=== PATIENT | female | born 1995 | race Caucasian/White ===

== ENCOUNTER → 2019-09-30 | Outpatient (REF) | payer BC ==
[2019-09-30 12:31] LABS: ALBUMIN 4.2 GM/DL (3.2-5.2); ALT/SGPT 21 U/L (12-78); BILIRUBIN,TOTAL 0.4 MG/DL (0.2-1.0); BLOOD UREA NITROGEN 13 MG/DL (7-18); CARBON DIOXIDE LEVEL 30 MEQ/L (21-32); CHLORIDE LEVEL 108 MEQ/L (98-107); CREATININE FOR GFR 0.68 MG/DL (0.55-1.30); FREE T4 1.04 NG/DL (0.76-1.46); GLOMERULAR FILTRATION RATE > 60.0 (>60); GLUCOSE, FASTING 95 MG/DL (70-100); POTASSIUM SERUM 4.4 MEQ/L (3.5-5.1); SODIUM LEVEL 142 MEQ/L (136-145); THYROID STIMULATING HORMONE 0.463 uIU/ML (0.358-3.740); TOTAL 25(OH) VITAMIN D 28.2 NG/ML (30.0-100.0); TOTAL PROTEIN 7.4 GM/DL (6.4-8.2)
[2019-09-30 13:32] LABS: HEMOGLOBIN A1c 5.2 %
== END ==
LOC: M SFHCPLAZ 10:07
PROVIDERS: ATTEND Physician Assistant
DX: Z00.00 Encounter for general adult medical examination without abnormal findings (principal); Z86.39 Personal history of other endocrine, nutritional and metabolic disease; Z13.1 Encounter for screening for diabetes mellitus

== ENCOUNTER → 2020-12-23 | Outpatient (CLI) | payer BC, OTHER ==
[2020-12-23 13:58] LABS: CHOLESTEROL RISK RATIO 2.567 (<5)
== END ==
LOC: M PLALAB 09:13
PROVIDERS: ATTEND Psychiatry & Neurology Psychiatry
DX: F41.8 Other specified anxiety disorders (principal); F33.1 Major depressive disorder, recurrent, moderate; F10.99 Alcohol use, unspecified with unspecified alcohol-induced disorder

== ENCOUNTER → 2021-02-21 | Outpatient (REF) | payer OTHER, MEDICAID ==
[~2021-02-21] MED LIST: DIVA250T67 PO; LEXA1TAB PO; LORY1TAB2 PO; METF500T13 PO; TRAZ-252 PO
[2021-02-21 17:44] LABS: ALBUMIN 3.8 GM/DL (3.2-5.2); BILIRUBIN,DIRECT 0.2 MG/DL (0.0-0.2); BILIRUBIN,TOTAL 0.5 MG/DL (0.2-1.0); TOTAL PROTEIN 7.5 GM/DL (6.4-8.2)
== END ==
LOC: M PLALAB 16:48
PROVIDERS: ATTEND Psychiatry & Neurology Psychiatry
DX: F41.8 Other specified anxiety disorders (principal); F33.1 Major depressive disorder, recurrent, moderate; F10.99 Alcohol use, unspecified with unspecified alcohol-induced disorder

== ENCOUNTER 2021-03-26 06:31 | Inpatient (IN) | payer BC, OTHER ==
[~2021-03-26] VITALS: Ht 162.6 cm; Wt 88.0 kg
[2021-03-26 07:33] LABS: HEMATOCRIT 37.1 % (36.0-47.0); HEMOGLOBIN 12.5 g/dl (12.0-15.5); MEAN CORPUSCULAR HEMOGLOBIN 30.5 pg (27.0-33.0); MEAN CORPUSCULAR HGB CONC 33.7 g/dl (32.0-36.5); MEAN CORPUSCULAR VOLUME 90.5 fl (80.0-96.0); PLATELET COUNT, AUTOMATED 240 10^3/uL (150-450); WHITE BLOOD COUNT 9.8 10^3/uL (4.0-10.0)
[2021-03-26] MEDS ORDERED: TRAZ-252 PO (07:36)
[2021-03-26] MEDS ORDERED: LORY1TAB2 PO (07:36)
[2021-03-26] MEDS ORDERED: LEXA1TAB PO (07:36)
[2021-03-26] MEDS ORDERED: DIVA250T67 PO (07:36)
[2021-03-26] MEDS ORDERED: METF500T13 PO (07:36)
[2021-03-26 07:58] LABS: AMPHETAMINES LEVEL URINE NEGATIVE (NEGATIVE); BARBITURATES URINE NEGATIVE (NEGATIVE); BENZODIAZEPINES URINE NEGATIVE (NEGATIVE); CANNABINOIDS URINE POSITIVE (NEGATIVE); COCAINE METABOLITE URINE NEGATIVE (NEGATIVE); METHADONE URINE NEGATIVE (NEGATIVE); OPIATES URINE NEGATIVE (NEGATIVE); PHENCYCLIDINE URINE NEGATIVE (NEGATIVE)
[2021-03-26 08:01] LABS: HCG, SERUM QUALITATIVE NEGATIVE (NEGATIVE)
[2021-03-26 08:07] LABS: ACETAMINOPHEN LEVEL < 2.0 UG/ML (10.0-30.0); ALBUMIN 3.8 GM/DL (3.2-5.2); ALT/SGPT 38 U/L (12-78); BILIRUBIN,DIRECT 0.1 MG/DL (0.0-0.2); BILIRUBIN,TOTAL 0.3 MG/DL (0.2-1.0); BLOOD UREA NITROGEN 7 MG/DL (7-18); CALCIUM LEVEL 8.8 MG/DL (8.5-10.1); CARBON DIOXIDE LEVEL 27 MEQ/L (21-32); CHLORIDE LEVEL 108 MEQ/L (98-107); CREATININE FOR GFR 0.67 MG/DL (0.55-1.30); ETHYL ALCOHOL (ETHANOL) 0.159 % (0.000-0.010); GLOMERULAR FILTRATION RATE > 60.0 (>60); GLUCOSE, FASTING 86 MG/DL (70-100); SALICYLATE LEVEL 1.7 MG/DL (5.0-30.0); SODIUM LEVEL 141 MEQ/L (136-145); TOTAL PROTEIN 7.6 GM/DL (6.4-8.2)
[2021-03-26] MEDS ORDERED: metFORMIN (GLUCOPHAGE) 500MG TAB PO ONE (09:00)
[2021-03-26] MEDS ORDERED: DIVALPROEX 250 MG TAB PO ONE (09:00)
[2021-03-26] MEDS ORDERED: ESCITALOPRAM OXALATE 10 MG TAB (LEXAPRO) PO ONE (09:00)
[2021-03-26] MEDS ORDERED: ACETAMINOPHEN TAB 650MG DOSE (2X325MG) PO ONE (11:55)
[2021-03-27] MEDS ORDERED: NICOTINE 21MG/24HR 1 EA TRANSDERMAL TD SCH (09:00)
[2021-03-27] MEDS ORDERED: ESCITALOPRAM OXALATE 10 MG TAB (LEXAPRO) PO SCH (09:00)
[2021-03-27] MEDS ORDERED: metFORMIN (GLUCOPHAGE) 500MG TAB PO SCH (09:00)
[2021-03-27] MEDS ORDERED: DIVALPROEX 250 MG TAB PO SCH (09:00)
[2021-03-27 09:08] LABS: RSV AMPLIFICATION NEGATIVE (NEGATIVE)
[2021-03-27] MEDS ORDERED: MAALOX 30 ML SUSP *UDC PO PRN (09:40)
[2021-03-27] MEDS ORDERED: MOM 30ML SUSPENSION UDC PO PRN (09:40)
[2021-03-27] MEDS ORDERED: ACETAMINOPHEN TAB 650MG DOSE (2X325MG) PO PRN (09:40)
[2021-03-27 10:51] VITALS: BP 116/59
[2021-03-27] MEDS ORDERED: OLANZapine ORAL DISINTEGRATING TAB 5MG PO PRN (18:20)
[2021-03-27] MEDS: traZODone 50 MG TAB PO PRN (20:21)
[2021-03-27] MEDS: metFORMIN (GLUCOPHAGE) 500MG TAB PO SCH (20:21)
[2021-03-27] MEDS: DIVALPROEX 250 MG TAB PO SCH (20:21)
[2021-03-28 06:00] VITALS: BP 143/75
[2021-03-28] MEDS ORDERED: LORYNA PO SCH (09:00)
[2021-03-28] MEDS: ESCITALOPRAM OXALATE 10 MG TAB (LEXAPRO) PO SCH (09:30)
[2021-03-28] MEDS: DIVALPROEX 250 MG TAB PO SCH ×2 (09:30→20:34)
[2021-03-28] MEDS: metFORMIN (GLUCOPHAGE) 500MG TAB PO SCH ×2 (09:30→20:34)
--- NOTE | 2021-03-28 12:20 | HPEPDOC ---
General Date of Admission Mar 27, 2021 at 09:40 Date of Service: Mar 28, 2021 Chief Complaint The patient is a 26-year-old female admitted with a reason for visit of Unspecified Depressive Disorders. History of Present Illness 26 year old female is admitted to [facility] for depressive disorder. She is being examined here today for medical history and physical. Does not offer any complaints today. Reports she was very upset onteh the night of admission so drank a lot but otherwise she would drink about 2 times per month about 3 drinks Home Medications Scheduled Divalproex Sodium (Divalproex Sodium) 250 Mg Tablet.dr, 250 MG PO BID, (Reported) Escitalopram Oxalate (Lexapro) 10 Mg Tablet, 10 MG PO DAILY, (Reported) Ethinyl Estradiol/Drospirenone (Loryna 3 mg-0.02 mg Tablet) 1 Each Tablet, 1 TAB PO DAILY, (Reported) Metformin HCl (Metformin HCl) 500 Mg Tablet, 500 MG PO BID, (Reported) Allergies Coded Allergies: sulfamethoxazole (Verified Allergy, Mild, SHAKY, 03/26/21) trimethoprim (Verified Allergy, Mild, SHAKY, 03/26/21) Past Medical History Medical History PCOS Unspecified depressive disorder. Social anxiety. Cannabis use disorder. Alcohol use disorder. Obsessive-compulsive personality disorder. Borderline personality disorder. Surgical History 2 wisdom teeth removed. Family History Significant Family History: Heart disease (maternal grandfather), Hypertension (maternal grandfather and maternal grandmother), Other (stroke paternal grandfather) Social History * Smoker: Denies Alcohol: occationally Drugs: denies A-FIB/CHADSVASC A-FIB History Current/History of A-Fib/PAF?: No Review of Systems Constitutional: Denies: Chills, Fever, Night Sweats Eyes: Denies: Pain, Vision change ENT: Denies: Head Aches, Ear Pain, Dysphagia Skin: Denies: Rash, Lesions, Breakdown Pulmonary: Denies: Dyspnea, Cough Cardiovascular: Denies: Chest Pain, Palpitations, Orthopnea, Paroxysmal Noc. Dyspnea, Lt Headedness Gastrointestinal: Denies: Nausea, Vomiting, Abdominal Pain, Diarrhea Genitourinary: Denies: Dysuria, Frequency, Incontinence, Retention Physical Examination General Exam: Positive: Alert, Cooperative, No Acute Distress Eye Exam: Positive: PERRLA, Conjunctiva & lids normal, EOMI; Negative: Sclera icteric ENT Exam: Positive: Atraumatic, Mucous membr. moist/pink, Pharynx Normal Neck Exam: Positive: Supple; Negative: JVD, thyromegaly Chest Exam: Positive: Clear to auscultation, Normal air movement Heart Exam: Positive: Rate Normal, Regular Rhythm, Normal S1, Normal S2; Negative: Murmurs, Rubs Abdomen Exam: Positive: Normal bowel sounds, Soft; Negative: Tenderness Extremity Exam: Negative: Clubbing, Cyanosis, Edema Skin Exam: Positive: Nl turgor and temperature; Negative: Breakdown, Lesion Vital Signs Vital Signs Date Time Temp Pulse Resp B/P (MAP) Pulse Ox O2 Delivery O2 Flow Rate FiO2 03/28/21 06:00 97.8 74 18 143/75 (97) 99 Room Air Assessment/Plan 26 year old female is admitted to [facility] for depressive disorder. She is being examined here today for medical history and physical. Does not offer any complaints today. Depression as per psychiatry PCOS continue metformin and oral contraceptive pills. No active medical problems. CRISTAL TILLMAN MD Mar 28, 2021 11:20
--- NOTE | 2021-03-28 12:56 | MHHPE ---
[facility] HISTORY AND PHYSICAL DATE OF ADMISSION: 03/27/2021 IDENTIFYING DATA: She is a 26-year-old female, , living with her . She was self-referred to the hospital along with a friend of hers, as she was severely depressed and had suicidal thoughts. The patient is currently employed. CHIEF COMPLAINT: "I was severely depressed and I had suicidal thoughts." HISTORY OF PRESENT ILLNESS: The patient reportedly was drinking a lot because of her depression and anxieties of divorce from her , as the relationship between the two was deteriorating. Reportedly, the patient was arguing a lot with her . She would not go to the bars which her wanted to go. She recently had suicidal thoughts. On that day, she drank a lot. She wanted to crash her car, however, her friend came in between and she was brought to the hospital. She complains of increased appetite at times and decreased appetite at times. Her current medications include Lexapro 10 mg once daily, Depakote 500 mg twice daily, and Metformin ER 500 mg twice daily. The patient reports that the medication is helping her. ALLERGIES: SULFAMETHOXAZOLE, TRIMETHOPRIM. PAST PSYCHIATRIC HISTORY: The patient has never been hospitalized. This is her first psychiatric hospitalization; however, she was treated at [facility] for depression. She was on sertraline before and could not tolerate it. She was also on Celexa in the past. SUICIDAL HISTORY: She denies suicidal thoughts. DRUG AND ALCOHOL HISTORY: The patient has reportedly been drinking a lot at times, but she minimizes her drinking problem. She also abuses cannabis 2-3 times a week. LEGAL HISTORY: The patient has a history of DUI about six months ago. MEDICAL HISTORY: The patient has a history of polycystic ovarian syndrome. FAMILY HISTORY: Denies family history of mental illness. PERSONAL HISTORY: She was born and raised in [facility]. She was raised by both her parents. However, they when she was [age] years old. She lived with her mother. She graduated from high school. She worked in [employer] and currently she reports she is working for [employer]. MENTAL STATUS EXAMINATION: Neatly dressed, makes good eye contact, cooperative. Her psychomotor activity is normal. Speech rate, rhythm, and volume are good. Thought process is linear, goal directed. Mood is depressed with appropriate affect. Denied any auditory or visual hallucinations. Thought content, denied any suicidal or homicidal ideas. Denied any delusions. Her insight and judgment are fair. Her impulse control is questionable. Memory, immediate, remote, and recent is good. REVIEW OF SYSTEMS: CONSTITUTIONAL: Negative for night sweats, weight loss. HEENT: Negative for epistaxis, headache, hearing loss. RESPIRATORY SYSTEM: No cough or shortness of breath, no wheezing. CARDIOVASCULAR SYSTEM: Negative for chest pain, dyspnea. GASTROINTESTINAL: No abdominal pain. No change in bowel habits. GENITOURINARY: No dysuria, no trouble voiding, no hematuria. MUSCULOSKELETAL: Negative for gait disturbances, joint pain. NEUROLOGICAL: No numbness, no tingling. All other systems are negative. DIAGNOSES: 1. Major depressive disorder, recurrent. 2. Anxiety disorder, not otherwise specified. 3. Alcohol use disorder. 4. Cannabis use disorder. 5. Polycystic ovarian disease. TREATMENT RECOMMENDATIONS: 1. The patient will be admitted to [facility]. 2. The patient will be followed up by senior pensions administrator for medical needs. 3. The patient will be seen by occupational therapy, director of social media marketing, and case management. 4. She will be placed on appropriate precautions and elopement precaution and suicide precautions. 5. She will participate in individual, group, and milieu therapy. MEDICATION: 1. Lexapro 10 mg once daily. 2. Depakote ER 500 mg twice daily. Will check her Depakote level. ESTIMATED LENGTH OF STAY: Two to three day.
[2021-03-28 18:56] VITALS: BP 149/84
[2021-03-28] MEDS: traZODone 50 MG TAB PO PRN (20:34)
[2021-03-29 06:20] VITALS: BP 126/62
[2021-03-29] MEDS: metFORMIN (GLUCOPHAGE) 500MG TAB PO SCH ×2 (09:19→20:31)
[2021-03-29] MEDS: ESCITALOPRAM OXALATE 10 MG TAB (LEXAPRO) PO SCH (09:19)
[2021-03-29] MEDS: DIVALPROEX 250 MG TAB PO SCH ×2 (09:19→20:31)
--- NOTE | 2021-03-29 13:44 | MHIPN ---
[facility] PROGRESS NOTE DATE: 03/29/2021 CHIEF COMPLAINT: "I'm feeling better. I think my problems are alcohol and I want to be discharged." SUBJECTIVE: She is a 26-year-old female, , was living with her , was self-referred to the hospital after she had suicidal thoughts after she was intoxicated with alcohol. Currently, she is doing better. Her sleep and appetite are good. MENTAL STATUS EXAMINATION: Neatly dressed with clean clothes, cooperative. Makes good eye contact. Psychomotor activity is normal. Speech: Rate, rhythm and volume are good. Thought process: Linear and goal-directed. Denies any auditory or visual hallucinations. Denies any delusions. Denies any suicidal or homicidal ideas. She is oriented to time, place and person. Her attention and concentration is good. Insight and judgment is good. CURRENT MEDICATIONS: - Lexapro 10 mg once daily - Depakote ER 250 mg twice daily VITAL SIGNS: Temperature 98.2, pulse 100, respirations 16, blood pressure 126/62, pulse oximetry 98%. DIAGNOSES: 1. Major depressive disorder, recurrent. 2. Anxiety disorder, not otherwise specified. 3. Alcohol use disorder. 4. Cannabis use disorder. 5. Polycystic ovarian disease. PLAN: 1. Continue current medications. 2. Consider starting outpatient rehabilitation for alcohol use disorder. ESTIMATED LENGTH OF STAY: 1-2 days. TIME SPENT: 25 minutes.
[2021-03-29 17:47] VITALS: BP 136/80
[2021-03-29] MEDS: traZODone 50 MG TAB PO PRN (20:31)
[2021-03-30 06:00] VITALS: BP 113/64
[2021-03-30] MEDS: ESCITALOPRAM OXALATE 10 MG TAB (LEXAPRO) PO SCH (09:47)
[2021-03-30] MEDS: metFORMIN (GLUCOPHAGE) 500MG TAB PO SCH (09:47)
[2021-03-30] MEDS: DIVALPROEX 250 MG TAB PO SCH (09:47)
--- NOTE | 2021-03-30 10:20 | MHDS ---
[facility] DISCHARGE SUMMARY DATE OF ADMISSION: 03/27/2021 DATE OF DISCHARGE: 03/30/2021 DIAGNOSES: 1. Major depressive disorder, recurrent. 2. Anxiety disorder, not otherwise specified. 3. Alcohol use disorder. 4. Cannabis use disorder. 5. Polycystic ovarian disease. IDENTIFYING DATA: She is a 26-year-old female, , living with her , was self-referred to the hospital after she had suicidal thoughts after being intoxicated with alcohol. For details of history of present illness (HPI), past psychiatric history, substance abuse history, personal history, medical history, family history, please refer to the initial evaluation. COURSE IN THE HOSPITAL: Patient's alcohol level was 0.153 when she was admitted. She reported broke up with her girlfriend, which made her sad and was expressing suicidal thoughts. She was compliant with her medication at home. However, she was continued with the same medication, Lexapro 10 mg once daily, Depakote ER 250 mg twice daily. Patient made gradual recovery. Her sleep improved. Her mood issues resolved. The depression resolved. She had plans for the future. She denied any side effects of the medication and she was stable at the time of discharge. Patient also received individual, group and milieu therapy. MENTAL STATUS EXAMINATION: Casually dressed with clean clothes. Makes good eye contact. Psychomotor activity is normal. Speech: Rate, rhythm and volume are good. Thought process: Linear and goal-directed. Denies auditory or visual hallucinations. Denies any delusions. Denies suicidal or homicidal ideas. Patient is oriented to time, place and person. Her attention and concentration is good. Her insight and judgment is good. VITAL SIGNS: Temperature 98.2, pulse 74, respiratory rate 16, blood pressure 130/64, pulse oximetry 98%. REVIEW OF SYSTEMS: Denies chest pain or palpitations. Denies cough or shortness of breath. Denies abdominal pain or dysuria. Denies dizziness or numbness. PLAN: Discharge her home. Follow up at [facility] outpatient clinic. DISCHARGE MEDICATIONS: - Depakote 250 mg twice daily - Lexapro 10 mg once daily - metformin 500 mg twice a day
== END 2021-03-30 11:06 | disposition home or self-care (01) | DRG 751 ==
LOC: M ED 06:31 → M ED INP 03-27 09:40 → M PSY 03-27 10:54
PROVIDERS: ADMIT Psychiatry & Neurology Psychiatry; ATTEND Psychiatry & Neurology Psychiatry
DX: F33.9 Major depressive disorder, recurrent, unspecified (principal); R45.851 Suicidal ideations; F41.9 Anxiety disorder, unspecified; F10.10 Alcohol abuse, uncomplicated; F12.90 Cannabis use, unspecified, uncomplicated; E28.2 Polycystic ovarian syndrome; Z79.899 Other long term (current) drug therapy; Z88.2 Allergy status to sulfonamides; Z88.8 Allergy status to other drugs, medicaments and biological substances; F60.3 Borderline personality disorder; F42.8 Other obsessive-compulsive disorder

== ENCOUNTER → 2022-09-26 | Outpatient (CLI) | payer OTHER ==
[2022-09-26 13:31] LABS: HEMATOCRIT 42.2 % (36.0-47.0); HEMOGLOBIN 13.8 g/dl (12.0-15.5); MEAN CORPUSCULAR HEMOGLOBIN 31.2 pg (27.0-33.0); MEAN CORPUSCULAR HGB CONC 32.7 g/dl (32.0-36.5); MEAN CORPUSCULAR VOLUME 95.3 fl (80.0-96.0); PLATELET COUNT, AUTOMATED 306 10^3/uL (150-450); RED BLOOD COUNT 4.43 10^6/uL (4.00-5.40)
[2022-09-26 13:32] LABS: VALPROIC ACID (DEPAKOTE) 31.2 UG/ML (50.0-100.0)
[2022-09-26 13:34] LABS: BILIRUBIN,DIRECT 0.1 MG/DL (<0.4); BILIRUBIN,TOTAL 0.5 MG/DL (0.3-1.2); TOTAL PROTEIN 7.7 G/DL (5.7-8.2)
== END ==
LOC: M PLALAB 10:02
PROVIDERS: ATTEND Psychiatry & Neurology Psychiatry
DX: F41.8 Other specified anxiety disorders (principal); F33.1 Major depressive disorder, recurrent, moderate; F10.99 Alcohol use, unspecified with unspecified alcohol-induced disorder

== ENCOUNTER → 2023-02-13 | Outpatient (CLI) | payer OTHER | LOC: M PLALAB 13:41 | PROVIDERS: ATTEND Psychiatry & Neurology Psychiatry | DX: F41.8 Other specified anxiety disorders (principal); F33.1 Major depressive disorder, recurrent, moderate; F10.99 Alcohol use, unspecified with unspecified alcohol-induced disorder ==

== ENCOUNTER 2023-05-17 09:16 | Day surgery (SDC) | payer OTHER ==
[~2023-05-17] VITALS: Ht 162.6 cm; Wt 77.1 kg
[~2023-05-17 09:16] MED LIST changes: +BUDE3CAP PO; +DIVA500T94 PO; +LIDOCAINE 2% 100MG/5ML SDV (FOR ANES.) As Ordered ONE; +NS 1,000 ML IV ONE; +VENL75CA47 PO; +propofoL 200 MG/20 ML VIAL As Ordered ONE
[2023-05-17 10:41] VITALS: TEMP 98.3
[2023-05-17 11:00] VITALS: BP 109/66; O2SAT 100
== END 2023-05-17 11:08 | disposition home or self-care (01) ==
LOC: M OPP 09:16
PROVIDERS: ATTEND Internal Medicine Gastroenterology
DX: K64.8 Other hemorrhoids (principal); K92.1 Melena; R19.4 Change in bowel habit; Z79.899 Other long term (current) drug therapy; Z88.8 Allergy status to other drugs, medicaments and biological substances; Z72.0 Tobacco use

== ENCOUNTER → 2023-11-26 | Outpatient (CLI) | payer OTHER ==
[~2023-11-26] MED LIST changes: -LIDOCAINE 2% 100MG/5ML SDV (FOR ANES.) As Ordered ONE; -NS 1,000 ML IV ONE; -propofoL 200 MG/20 ML VIAL As Ordered ONE
[2023-11-26 12:55] LABS: HEMOGLOBIN 13.7 g/dl (12.0-15.5); MEAN CORPUSCULAR HEMOGLOBIN 31.2 pg (27.0-33.0); MEAN CORPUSCULAR HGB CONC 33.4 g/dl (32.0-36.5); MEAN CORPUSCULAR VOLUME 93.4 fl (80.0-96.0); PLATELET COUNT, AUTOMATED 232 10^3/uL (150-450); RED BLOOD COUNT 4.39 10^6/uL (4.00-5.40); WHITE BLOOD COUNT 7.7 10^3/uL (4.0-10.0)
[2023-11-26 13:18] LABS: VALPROIC ACID (DEPAKOTE) 78.5 UG/ML (50.0-100.0)
[2023-11-26 13:20] LABS: ALBUMIN 4.1 G/DL (3.2-5.2); ALKALINE PHOSPHATASE 60 U/L (46-116); ALT/SGPT 10 U/L (7.0-40); AST/SGOT < 8 U/L (<34); BILIRUBIN,DIRECT 0.2 MG/DL (<0.4); BILIRUBIN,TOTAL 0.5 MG/DL (0.3-1.2); CHOLESTEROL LEVEL 148 MG/DL (<200); GLUCOSE, FASTING 78 MG/DL (60-100); HDL CHOLESTEROL 49.2 MG/DL (>40); LDL CHOLESTEROL 81.6 MG/DL (<100); NON-HDL-C 98.8 MG/DL; TOTAL PROTEIN 7.2 G/DL (5.7-8.2); TRIGLYCERIDES LEVEL 86 MG/DL (<150)
== END ==
LOC: M PLALAB 11:22
PROVIDERS: ATTEND Psychiatry & Neurology Psychiatry
DX: F60.3 Borderline personality disorder (principal)